=== PATIENT | female | born 1950 | race Caucasian/White ===

== ENCOUNTER 2020-07-20 07:23 | Emergency (ER) | payer MEDICARE ==
[~2020-07-20] VITALS: Ht 167.6 cm; Wt 111.0 kg
[2020-07-20 08:26] LABS: BASO # 0.1 x10^3/uL (0.0-0.2); BASO % 1 % (0-3); EOS % 0 % (0-3); HEMATOCRIT 40.3 % (36.0-47.0); HEMOGLOBIN 13.5 g/dL (12.0-15.5); LYMPH # 1.1 x10^3/uL (1.0-4.8); LYMPH % 8 % (24-48); MEAN CORPUSCULAR HEMOGLOBIN 30 pg (25-35); MEAN CORPUSCULAR HGB CONC 33 g/dL (31-37); MEAN CORPUSCULAR VOLUME 90 fL (79-100); MONO # 0.8 x10^3/uL (0.0-1.1); MONO % 5 % (0-9); NEUT # 12.4 x10^3/uL (1.8-7.7); NEUT % 86 % (31-73); PLATELET COUNT 218 x10^3/uL (140-400); RED BLOOD COUNT 4.47 x10^6/uL (3.50-5.40); RED CELL DISTRIBUTION WIDTH 14.5 % (11.5-14.5); WHITE BLOOD COUNT 14.3 x10^3/uL (4.0-11.0)
[2020-07-20 08:30] LABS: CALCIUM 9.7 mg/dL (8.5-10.1); POTASSIUM 3.6 mmol/L (3.5-5.1)
[2020-07-20] MEDS ORDERED: IV NORMAL SALINE 1000ML BAG 1,000 ML IV ONE (08:30)
[2020-07-20 08:33] LABS: BILIRUBIN,URINE NEGATIVE (NEG); CLARITY,URINE CLOUDY; COLOR,URINE YELLOW; NITRITE,URINE NEGATIVE (NEG); PROTEIN,URINE NEGATIVE (NEG-TRACE); UROBILINOGEN,URINE 0.2 mg/dL (0.2 mg/dL)
[2020-07-20 08:36] LABS: ALBUMIN 4.1 g/dL (3.4-5.0); ALBUMIN/GLOBULIN RATIO 1.1 (1.0-1.7); TOTAL BILIRUBIN 0.9 mg/dL (0.2-1.0); TOTAL PROTEIN 7.7 g/dL (6.4-8.2)
[2020-07-20] MEDS ORDERED: IOHEXOL 300 MG/ML 100ML VIAL. IV ONE (08:45)
[2020-07-20] MEDS ORDERED: IOHEXOL 240 MG/ML 50ML VIAL. PO ONE (08:45)
--- NOTE | 2020-07-20 08:48 | ED.ADGEN ---
Past Medical History Past Medical History: GERD Past Surgical History: Hysterectomy, Other Additional Past Surgical Histo: LEFT FOOT, CATARACTS Smoking Status: Never Smoker Alcohol Use: None General Adult EDM: Chief Complaint: RECTAL BLEED HPI: HPI: Patient 70-year-old female who presents to the emergency room complaining of abdominal pain, diarrhea, rectal bleeding. Patient states that last night she was suddenly hit with nausea and severe abdominal cramping. She then had continuous abdominal cramping with 3 episodes of diarrhea. The last episode of diarrhea had blood in it. Since then she has had 2 episodes where she is urinated and had bloody material come from her rectum. She has not had any further diarrhea. She gets intermittent abdominal cramping now. She denies any fevers, chills, sweats, shortness of breath, cough, rash, hematemesis, urinary frequency, hematuria. Review of Systems: Review of Systems: Complete ROS is negative unless otherwise documented in HPI Current Medications: Current Medications Medications (Trade) Dose Ordered Sig/Shanthi Start Time Stop Time Status Last Admin Dose Admin Info (CONTRAST GIVEN -- Rx MONITORING) 1 each PRN DAILY PRN 07/20/20 09:00 07/22/20 08:59 Iohexol (Omnipaque 240 Mg/ml) 50 ml 1X ONCE 07/20/20 08:45 07/20/20 08:46 DC 07/20/20 08:45 50 ML Iohexol (Omnipaque 300 Mg/ml) 60 ml 1X ONCE 07/20/20 08:45 07/20/20 08:46 DC 07/20/20 09:30 60 ML Sodium Chloride 1,000 ml @ 1,000 mls/hr 1X ONCE 07/20/20 08:30 07/20/20 09:29 DC 07/20/20 08:35 1,000 MLS/HR Allergies: Allergies: Allergies Coded Allergies Type Severity Reaction Last Updated Verified No Known Drug Allergies 07/20/20 No Physical Exam: PE: General: Awake, alert, NAD. Well Nourished, well hydrated. Cooperative HEENT: Atraumatic, EOMI, PERRL, airway patent, moist oral mucosa Neck: Supple, trachea midline Respiratory: CTA bilaterally, normal effort, no wheezing/crackles CV: RRR, no murmur, cap refill <2 GI: Soft, nondistended, nontender, no masses MSK: No obvious deformities Skin: Warm, dry, intact Neuro: A&O x3, speech NL, sensory and motor grossly intact, no focal deficits Psych: Normal affect, normal mood, not suicidal or homicidal Current Patient Data: Labs: Laboratory Tests Test 07/20/20 08:10 07/20/20 08:20 White Blood Count 14.3 x10^3/uL (4.0-11.0) H Red Blood Count 4.47 x10^6/uL (3.50-5.40) Hemoglobin 13.5 g/dL (12.0-15.5) Hematocrit 40.3 % (36.0-47.0) Mean Corpuscular Volume 90 fL (79-100) Mean Corpuscular Hemoglobin 30 pg (25-35) Mean Corpuscular Hemoglobin Concent 33 g/dL (31-37) Red Cell Distribution Width 14.5 % (11.5-14.5) Platelet Count 218 x10^3/uL (140-400) Neutrophils (%) (Auto) 86 % (31-73) H Lymphocytes (%) (Auto) 8 % (24-48) L Monocytes (%) (Auto) 5 % (0-9) Eosinophils (%) (Auto) 0 % (0-3) Basophils (%) (Auto) 1 % (0-3) Neutrophils # (Auto) 12.4 x10^3/uL (1.8-7.7) H Lymphocytes # (Auto) 1.1 x10^3/uL (1.0-4.8) Monocytes # (Auto) 0.8 x10^3/uL (0.0-1.1) Eosinophils # (Auto) 0.0 x10^3/uL (0.0-0.7) Basophils # (Auto) 0.1 x10^3/uL (0.0-0.2) Platelet Estimate Pending Sodium Level 139 mmol/L (136-145) Potassium Level 3.6 mmol/L (3.5-5.1) Chloride Level 101 mmol/L (98-107) Carbon Dioxide Level 24 mmol/L (21-32) Anion Gap 14 (6-14) Blood Urea Nitrogen 15 mg/dL (7-20) Creatinine 1.0 mg/dL (0.6-1.0) Estimated GFR (Cockcroft-Gault) 55.0 BUN/Creatinine Ratio 15 (6-20) Glucose Level 153 mg/dL (70-99) H Calcium Level 9.7 mg/dL (8.5-10.1) Total Bilirubin 0.9 mg/dL (0.2-1.0) Aspartate Amino Transferase (AST) 24 U/L (15-37) Alanine Aminotransferase (ALT) 29 U/L (14-59) Alkaline Phosphatase 71 U/L (46-116) Total Protein 7.7 g/dL (6.4-8.2) Albumin 4.1 g/dL (3.4-5.0) Albumin/Globulin Ratio 1.1 (1.0-1.7) Lipase 74 U/L (73-393) Urine Collection Type Unknown Urine Color Yellow Urine Clarity Cloudy Urine pH 5.0 (<5.0-8.0) Urine Specific [place] 1.025 (1.000-1.030) Urine Protein Negative mg/dL (NEG-TRACE) Urine Glucose (UA) Negative mg/dL (NEG) Urine Ketones (Stick) Negative mg/dL (NEG) Urine Blood Negative (NEG) Urine Nitrite Negative (NEG) Urine Bilirubin Negative (NEG) Urine Urobilinogen Dipstick 0.2 mg/dL (0.2 mg/dL) Urine Leukocyte Esterase Negative (NEG) Urine RBC 0 /HPF (0-2) Urine WBC Occ /HPF (0-4) Urine Squamous Epithelial Cells Mod /LPF Urine Bacteria Mod /HPF (0-FEW) Urine Hyaline Casts Moderate /HPF Urine Mucus Mod /LPF Laboratory Tests 07/20/20 08:10 Laboratory Tests 07/20/20 08:10 Vital Signs: Vital Signs Date Time Temp Pulse Resp B/P (MAP) Pulse Ox O2 Delivery O2 Flow Rate FiO2 07/20/20 07:45 98.0 104 20 131/82 (98) 98 Room Air 98.0 EKG: EKG: [] Heart Score: Risk Factors: Risk Factors: DM, Current or recent (<one month) smoker, HTN, HLP, family history of CAD, obesity. Risk Scores: Score 0 - 3: 2.5% MACE over next 6 weeks - Discharge Home Score 4 - 6: 20.3% MACE over next 6 weeks - Admit for Clinical Observation Score 7 - 10: 72.7% MACE over next 6 weeks - Early Invasive Strategies Radiology/Procedures: Radiology/Procedures: [] Course & Med Decision Making: Course & Med Decision Making Pertinent Labs and Imaging studies reviewed. (See chart for details) Patient is a 70 year-old female with a history of hypertension who presents to the Emergency Room complaining of abdominal pain, diarrhea, rectal bleeding. On exam, patient overall appears well though is tachycardic. Due to patients history, age, and exam work up will need to be done to evaluate for intra- abdominal pathology. Work up ordered includes CBC, CMP, lipase, UA, CT abdomen and pelvis. Patient's pain does not epigastric and a cardiac evaluation will not be needed for atypical pain. Ddx includes gastroenteritis, diverticulitis, colitis. Work up was reviewed and patient has colitis. She will be started on Augmentin and Levsin. She is feeling much better. Patient's test results and vitals while in the ED were fully reviewed and discussed with the patient. Patient is stable and at this time does not need admission to the hospital. We have discussed strict return precautions and the importance of following up with their Primary Care Physician. Patient stated understanding and was given an opportunity to ask any questions. Patient is in agreement with plan.. Brijesh Disclaimer: Dragelida Disclaimer: This electronic medical record was generated, in whole or in part, using a voice recognition dictation system. Departure Departure Impression: Primary Impression: Colitis Disposition: 01 DC HOME SELF CARE/HOMELESS Condition: STABLE Referrals: AMOL BRANDON MD (PCP) Patient Instructions: Colitis Scripts Methscopolamine [place] (METHSCOPOLAMINE BROMIDE) 2.5 Mg Tablet 2.5 MG PO Q8HRS PRN for cramping for 3 Days, #9 TAB Prov: ADRIÁN SANCHEZ MD 07/20/20 Amoxicillin/Potassium Clav (AUGMENTIN 875-125 TABLET) 1 Each Tablet 1 TAB PO Q12HR, #20 TAB Prov: ADRIÁN SANCHEZ MD 07/20/20 ADRIÁN SANCHEZ MD Jul 20, 2020 08:48
[2020-07-20] MEDS ORDERED: CONTRAST GIVEN. MC PRN (09:00)
[2020-07-20 09:04] LABS: HYALINE CASTS, URINE MODERATE /HPF
[2020-07-20 09:05] LABS: BACTERIA,URINE MOD /HPF (0-FEW); RBC,URINE 0 /HPF (0-2); WBC,URINE OCC /HPF (0-4)
--- NOTE | 2020-07-20 09:55 | RAD ---
Exam: CT abdomen/pelvis with intravenous contrast Indication: Abdominal pain Comparison: None Technique: Helical CT imaging performed of the abdomen and pelvis after the intravenous administration of 60 mL Omnipaque 300 contrast. Sagittal and coronal reformats were obtained. One or more of the following individualized dose reduction techniques were utilized for this examination: 1. Automated exposure control 2. Adjustment of the mA and/or kV according to patient size 3. Use of iterative reconstruction technique. Findings: Lower chest: Lung bases are clear. Heart is normal in size. Liver: Normal. Gallbladder/Biliary Tree: Normal. Pancreas: Normal. Spleen: Normal. Adrenal Glands: Normal. Kidneys/Ureters/Bladder: Kidneys are normal in size and enhance symmetrically. No hydronephrosis. Ureters and bladder are normal. Reproductive Organs: The uterus is surgically absent. No adnexal mass. Stomach, small bowel, and colon: Small hiatal hernia. No small bowel obstruction. There is mild wall thickening and surrounding inflammation in the colon from the splenic flexure through the sigmoid colon. Vasculature: Abdominal aorta is normal in caliber. Mild calcified atherosclerosis. Lymph Nodes: No lymphadenopathy. Peritoneum and retroperitoneum: No free fluid or free air. Bones: No acute osseous abnormality. Mild degenerative disc with severe facet arthrosis at L3-L4 through L5-S1, and 6 mm anterolisthesis of L4 on L5. Impression: Colitis involving the splenic flexure through sigmoid colon. Electronically signed by: Edita Llanos MD (07/20/2020 9:52 AM) [id number]
[2020-07-20 10:02] VITALS: BP 137/61
[2020-07-20] MEDS ORDERED: AMOX1TAB61 PO (10:04)
[2020-07-20] MEDS ORDERED: [UNRECOGNIZED DRUG - CODE] PO (10:11)
[2020-07-20 10:59] LABS: % ATYL 1 % (0-0); % BANDS 1 % (0-9); % LYMPHS 7 % (24-48); % MONOS 5 % (0-10); % SEGS 86 % (35-66)
[2020-07-20 11:00] LABS: PLT ESTIMATE ADEQUATE (ADEQUATE)
== END 2020-07-20 10:32 | disposition home or self-care (01) ==
LOC: ER 07:23
DX: K52.9 Noninfective gastroenteritis and colitis, unspecified (principal); K62.5 Hemorrhage of anus and rectum; R10.9 Unspecified abdominal pain; K21.9 Gastro-esophageal reflux disease without esophagitis; Z90.710 Acquired absence of both cervix and uterus
CPT/HCPCS: 36415; 74177; 80053; 81001; 83690; 85007; 85025; 96360; 99285; J7030; Q9966; Q9967